=== PATIENT | female | born 1990 ===

== ENCOUNTER 2020-11-29 17:11 | Emergency (ER) | payer OTHER ==
[2020-11-29] MEDS: Bacitracin Oint 1 GM U/D Packet TOP ONE (17:45)
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
== END 2020-11-29 18:22 | disposition home or self-care (01) ==
LOC: LL.ED 17:11
DX: S93.601A Unspecified sprain of right foot, initial encounter (principal); V29.9XXA Motorcycle rider (driver) (passenger) injured in unspecified traffic accident, initial encounter; Y93.55 Activity, bike riding
CPT/HCPCS: 73630-RT; 99283; 99283-25